=== PATIENT | male | born 1960 | race Caucasian/White ===

== ENCOUNTER 2018-05-29 16:49 | Emergency (ER) | payer OTHER ==
[~2018-05-29] VITALS: Ht 170.2 cm; Wt 117.7 kg
[~2018-05-29 16:49] MED LIST: ASPI325T30; ATEN-51; NIT3; SIMV10TA
[2018-05-29 16:53] VITALS: Ht 170.2 cm; Wt 117.7 kg
--- NOTE | 2018-05-29 18:08 | ERD ---
ER Documentation Chief Complaint Chief Complaint chest pain & nausea x2 wks, sob @ sleep HPI 57-year-old man complains of sharp nonexertional nonradiating chest pain times 2 weeks. Patient states the size of the pain is about the tip of his index finger and is localized to the anterior chest and intermittent throughout the day, he also complains of shortness of breath at night while trying to sleep and his says he has obstructive sleep apnea with apneic episodes that may be the cause of his shortness of breath. Interestingly the patient states shortness of breath improves when he removes the pillow and lays flat. He has had no epigastric abdominal pain, no weight loss, no vomiting or diarrhea, no fevers or chills, no headache or blurry vision. ROS All systems reviewed and are negative except as per history of present illness. Medications Home Meds Active Scripts Ibuprofen* (Motrin*) 600 Mg Tab, 600 MG PO Q8 PRN for PAIN AND/OR INFLAMMATION, #30 TAB Prov:PAUL OLSEN MD 05/29/18 Reported Medications Nitroglycerin* (Nitroglycerin* SL) 0.3 Mg Tab.subl 03/11/09 Discontinued Reported Medications Atenolol* (Atenolol*) 25 Mg Tablet 03/11/09 Simvastatin* (Zocor*) 10 Mg Tablet 03/11/09 Aspirin* (Aspirin*) 325 Mg Tablet 03/11/09 Allergies Allergies: Coded Allergies: No Known Drug Allergies (Unverified Allergy, Mild, 05/29/18) PMhx/Soc Obesity, hypertension History of Surgery: No Hx Neurological Disorder: Yes (CVA) Hx Respiratory Disorders: No Hx Cardiac Disorders: Yes (HYPERTENSION, ) Hx Miscellaneous Medical Probl: No Hx Alcohol Use: No Hx Substance Use: No Hx Tobacco Use: No FmHx Family History: No diabetes Physical Exam Vitals Vital Signs Date Temp Pulse Resp B/P (MAP) Pulse Ox O2 O2 Flow FiO2 Time Delivery Rate 05/29/18 98.2 69 18 146/91 99 Room Air 20:15 (109) 05/29/18 98.1 73 20 161/92 98 16:53 (115) Physical Exam GENERAL: Well-developed, well-nourished, well-hydrated, in no apparent distress, looks nontoxic in appearance HEENT: Moist mucous membranes, pink conjunctiva, no cervical spine tenderness or step-off deformities, no goiter, no jaundice or icterus, extraocular movements intact without pain. No submandibular induration, and no pharyngeal erythema NEURO: Alert and oriented 3, cranial nerves II through XII intact bilaterally, pupils equal round reactive to light, no focal deficits or facial asymmetry, sensation intact distally Strength 5/5 in upper and lower extremities bilaterally CARDIAC: Regular rate and rhythm, no murmurs rubs or gallops LUNGS: Clear bilaterally no wheezing crackles or stridor ABDOMEN: Soft nontender, no guarding, no rigidity, no rebound, no psoas sign no obturator sign. Normoactive bowel sounds SKIN: Warm and dry to touch, no abrasions, contusions, or hematomas, no lac erations, no ecchymosis, no target lesions, and without ulcers EXTREMITIES: No clubbing cyanosis or edema, calves are bilaterally symmetrical, no Homans sign, no popliteal cord sign. Distal pulses equal and bilateral PSYCH: Normal affect without agitation or irritability Result Diagram: 05/29/18185605/29/181856 Results 24 hrs Laboratory Tests Test 05/29/18 18:57 White Blood Count 9.1 10^3/ul Red Blood Count 5.04 10^6/ul Hemoglobin 14.0 g/dl Hematocrit 43.0 % Mean Corpuscular Volume 85.3 fl Mean Corpuscular Hemoglobin 27.8 pg Mean Corpuscular Hemoglobin Concent 32.6 g/dl Red Cell Distribution Width 13.6 % Platelet Count 273 10^3/UL Mean Platelet Volume 11.4 fl Immature Granulocytes % 0.400 % Neutrophils % 59.6 % Lymphocytes % 24.7 % Monocytes % 12.8 % Eosinophils % 1.9 % Basophils % 0.6 % Nucleated Red Blood Cells % 0.0 /100WBC Immature Granulocytes # 0.040 10^3/ul Neutrophils # 5.4 10^3/ul Lymphocytes # 2.2 10^3/ul Monocytes # 1.2 10^3/ul Eosinophils # 0.2 10^3/ul Basophils # 0.1 10^3/ul Nucleated Red Blood Cells # 0.0 10^3/ul Sodium Level 142 mmol/L Potassium Level 4.7 mmol/L Chloride Level 105 mmol/L Carbon Dioxide Level 24 mmol/L Anion Gap 13 Blood Urea Nitrogen 17 mg/dl Creatinine 0.83 mg/dl Est Glomerular Filtrat Rate mL/min > 60 mL/min Glucose Level 95 mg/dl Calcium Level 9.4 mg/dl Total Bilirubin 0.2 mg/dl Direct Bilirubin 0.00 mg/dl Indirect Bilirubin 0.2 mg/dl Aspartate Amino Transf (AST/SGOT) 53 IU/L Alanine Aminotransferase (ALT/SGPT) 41 IU/L Alkaline Phosphatase 55 IU/L Troponin I < 0.012 ng/ml B-Type Natriuretic Peptide 36 PG/ML Total Protein 8.8 g/dl Albumin 4.7 g/dl Globulin 4.10 g/dl Albumin/Globulin Ratio 1.14 Lipase 53 U/L Current Medications Medications Dose Sig/Ye Start Time Status Last (Trade) Ordered Route PRN Stop Time Admin Dose Reason Admin 40 ml ONCE STAT 05/29/18 DC 05/29/18 Miscellaneous PO 18:20 05/29/18 18:36 Medication 18:22 (Gi Cocktail (2)) Belladonna/ 2 tab ONCE STAT 05/29/18 DC 05/29/18 Phenobarbital PO 18:20 05/29/18 18:37 () 18:22 Procedures/MDM IV line was established patient was placed on telemetry monitor rhythm strip revealed a sinus rhythm at about 70 bpm with upright P and T waves. Patient was afebrile EKG performed, read by me revealed a normal sinus rhythm at 72 bpm, normal axis, narrow QRS complex, no concerning ST elevations or depressions noted, LVH in lead I Chest X-ray 1V Interpreted by me: Soft Tissue: No acute abnormalities Bones: No acute abnormalities Mediastinum/Cardiac Silhouette/Lungs: No acute abnormalities I administered GI cocktail p.o. CBC and electrolytes are normal, liver function tests were normal, troponin was negative Differential diagnoses considered, included but not limited to acute coronary syndrome, pulmonary embolism, aortic dissection, abdominal aortic aneurysm, sepsis, stroke, meningitis, encephalitis, pneumonia, appendicitis, cholecystitis, bowel obstruction, pyelonephritis, nephrolithiasis, cystitis, as well as metabolic, hematologic, and electrolyte abnormalities. As well as abscess, cellulitis, fractures, and dislocations. Patient feels much better at this time, and vital signs are normal, symptoms have improved. I did give strict instructions to return to the ED if symptoms continue or worsen, patient will otherwise follow-up with primary care physician. Patient understood instructions and agreed to plan. Disclaimer: Inadvertent spelling and grammatical errors are likely due to EHR/dictation software use and do not reflect on the overall quality of patient care. Also, please note that the electronic time recorded on this note does not necessarily reflect the actual time of the patient encounter. Departure Diagnosis: Primary Impression: Chest pain Chest pain type: unspecified Qualified Codes: R07.9 - Chest pain, unspecified Additional Impression: Obstructive sleep apnea Condition: PAUL Allred MD May 29, 2018 18:08
[2018-05-29] MEDS ORDERED: BELLADONNA/PHENOBARBITAL TAB PO STA (18:20)
[2018-05-29] MEDS ORDERED: LIDOCAINE/MYLANTA 40 ML BTL PO STA (18:20)
[2018-05-29] MEDS ORDERED: IBUP-1542 PO (20:07)
[2018-05-29 20:15] VITALS: BP 146/91; PULSE 69; RESP 18
== END 2018-05-29 20:20 | disposition home or self-care (01) ==
LOC: E/R 16:49
DX: R07.9 Chest pain, unspecified (principal); G47.33 Obstructive sleep apnea (adult) (pediatric); I10 Essential (primary) hypertension; R40.2142 Coma scale, eyes open, spontaneous, at arrival to emergency department; R40.2252 Coma scale, best verbal response, oriented, at arrival to emergency department; R40.2362 Coma scale, best motor response, obeys commands, at arrival to emergency department; Z86.73 Personal history of transient ischemic attack (TIA), and cerebral infarction without residual deficits
CPT/HCPCS: 71045; 80053; 83690; 83880; 84484; 85025; Z7610; 36415